=== PATIENT | female | born 1980 | race Caucasian/White ===

== ENCOUNTER 2017-12-22 23:56 | Emergency (ER) | payer SELFPAY ==
[~2017-12-22] VITALS: Ht 160 cm; Wt 55.8 kg
--- NOTE | 2017-12-23 00:15 | NUR ---
MD HERRON AT BEDSIDE FOR MSE
[2017-12-23] MEDS ORDERED: ASPIRIN 81 MG TAB.CHEW PO ONE (00:30)
[2017-12-23] MEDS ORDERED: ASPIRIN 81 MG TAB.CHEW ONE (00:45)
[2017-12-23 00:59] LABS: BASOPHILS # (AUTO) 0.1 K/uL (0.0-8.0); BASOPHILS % (AUTO) 1.2 % (0.0-2.0); EOSINOPHILS # (AUTO) 0.1 K/uL (0.0-0.7); EOSINOPHILS % (AUTO) 1.9 % (0.0-7.0); HEMATOCRIT 38.3 % (31.2-41.9); HEMOGLOBIN 13.2 g/dL (10.9-14.3); LYMPHOCYTES # (AUTO) 2.9 K/uL (20.0-40.0); LYMPHOCYTES % (AUTO) 43.8 % (20.5-51.5); MEAN CORPUSCULAR HEMOGLOBIN 30.5 uug (24.7-32.8); MEAN CORPUSCULAR HGB CONC 34 g/dL (32.3-35.6); MEAN CORPUSCULAR VOLUME 88.6 fL (75.5-95.3); MONOCYTES # (AUTO) 0.5 K/uL (2.0-10.0); MONOCYTES % (AUTO) 7.8 % (0.0-11.0); NEUTROPHILS % (AUTO) 45.3 % (38.5-71.5); PLATELET COUNT (AUTO) 277 K/uL (179-408); RED BLOOD CELL COUNT(AUTO) 4.33 MIL/uL (3.63-4.92); WHITE BLOOD COUNT (AUTO) 6.7 K/uL (3.8-11.8)
--- NOTE | 2017-12-23 01:12 | NUR ---
PT IN BED. PT'S VISITOR AT BEDSIDE. PT'S BREATH SOUNDS ARE REGULAR AND UNLABORED. VSS AND WNL. NO SIGNS OF DISTRESS WITNESSED AT THIS TIME.
[2017-12-23 01:17] LABS: CREATININE 0.8 mg/dL (0.6-1.3); POTASSIUM 3.5 mmol/L (3.5-5.1)
[2017-12-23 01:22] LABS: BILIRUBIN,TOTAL 0.6 mg/dL (0.2-1.0); TOTAL PROTEIN, SERUM 7.5 g/dL (6.4-8.2)
--- NOTE | 2017-12-23 02:10 | NUR ---
PT REPORTED BEING FREE OF CHEST PAIN WITH NO DIFFICULTIES BREATHING PRIOR TO DISCHARGE.
--- NOTE | 2017-12-23 02:20 | NUR ---
Patient discharged to home in stable conditon. Written and verbal after care instructions given. Patient verbalizes understanding of instructions. Patient able to ambulate unassisted with a steady gait. Patient left with all personal belongings.
[2017-12-23 03:19] VITALS: BP 101/67
== END 2017-12-23 02:20 | disposition home or self-care (01) ==
LOC: ER 23:58
DX: R07.9 Chest pain, unspecified (principal); Z88.6 Allergy status to analgesic agent
CPT/HCPCS: 36415; 70030-TC; 71045; 85025; 93005; A4663; J7030

== ENCOUNTER 2024-05-23 13:55 | Emergency (ER) | payer BC ==
[~2024-05-23] VITALS: Ht 160 cm; Wt 56.7 kg
[2024-05-23 13:56] VITALS: O2SAT 99
[2024-05-23] MEDS ORDERED: AZIT500T PO (14:16)
[2024-05-23] MEDS ORDERED: ACET10DR15 EACH EAR (14:16)
== END 2024-05-23 14:22 | disposition home or self-care (01) ==
LOC: ER 13:56
DX: H66.93 Otitis media, unspecified, bilateral (principal); J06.9 Acute upper respiratory infection, unspecified; Z79.899 Other long term (current) drug therapy; Z88.6 Allergy status to analgesic agent
CPT/HCPCS: A4606; A4663

== ENCOUNTER 2024-06-11 06:10 | Emergency (ER) | payer BC ==
[~2024-06-11] VITALS: Ht 160 cm; Wt 56.7 kg
[~2024-06-11 06:10] MED LIST: ACET10DR15 EACH EAR; AZIT500T PO
[2024-06-11] MEDS ORDERED: FLUORESCEIN SODIUM 1 MG STRIP ONE (06:40)
[2024-06-11] MEDS ORDERED: TETRACAINE HCL 0.5% OPHT DROP 2 ML BOTTLE ONE (06:40)
[2024-06-11] MEDS ORDERED: NAPH15DR RIGHTEYE (07:34)
[2024-06-11 07:42] VITALS: BP 101/62; TEMP 98.8; O2SAT 99
== END 2024-06-11 07:53 | disposition home or self-care (01) ==
LOC: ER 06:20
DX: B30.9 Viral conjunctivitis, unspecified (principal); Z79.899 Other long term (current) drug therapy; Z88.6 Allergy status to analgesic agent
CPT/HCPCS: A4606; A4663